=== PATIENT | male | born 1995 | race African-American/Black ===

== ENCOUNTER 2019-09-08 17:41 | Emergency (ER) | payer SELFPAY ==
[~2019-09-08] VITALS: Ht 188 cm; Wt 70.4 kg
[2019-09-08 18:57] VITALS: BP 145/64
--- NOTE | 2019-09-08 19:15 | PHYS DOC ---
Past Medical History Past Medical History: No Pertinent History (DALE STEELE APRN) Past Surgical History: No Surgical History (DALE STEELE APRN) Alcohol Use: None (DALE STEELE APRN) Attending Signature I have participated in the care of this patient and I have reviewed and agree with all pertinent clinical information above including history, exam, and recommendations. (ONEAL CARDONA MD) Adult General Chief Complaint Chief Complaint: FLU SYMPTOM [facility] HPI Patient is a 23 year old male who presents with fever, loss of appetite, body aches, sore throat, runny nose, cough that started 3 days ago. Patient has been able to drink water at home. Patient has been using Tylenol for fever control. Complete ROS were reviewed and found to be within normal limits, except as documented in the HPI (DALE STEELE APRN) Physical Exam Physical Exam Constitutional: Well developed, well nourished, no acute distress, non-toxic appearance. [] HENT: Normocephalic, atraumatic, bilateral external ears normal, bilateral tympanic membranes are pearly griffith, oropharynx moist, no oral exudates, nose turbinates are inflamed. Eyes: PERRLA, EOMI, conjunctiva normal, no discharge. [] Neck: Normal range of motion, no tenderness, supple, no stridor. [] Cardiovascular:Heart rate regular rhythm, no murmur [] Lungs & Thorax: Bilateral breath sounds clear to auscultation [] Abdomen: Bowel sounds normal, soft, no tenderness, no masses, no pulsatile masses. [] Skin: Warm, dry, no erythema, no rash. [] Neurologic: Alert and oriented X 3, normal motor function, normal sensory function, no focal deficits noted. [] Psychologic: Affect normal, judgement normal, mood normal. [] (DALE STEELE APRN) Current Patient Data Vital Signs Vital Signs Date Time Temp Pulse Resp B/P (MAP) Pulse Ox O2 Delivery O2 Flow Rate FiO2 09/08/19 18:57 99.9 106 24 145/64 (91) 95 Room Air 99.9 (ONEAL CARDONA MD) EKG EKG [] (DALE STEELE APRN) Radiology/Procedures Radiology/Procedures [] (DALE STEELE APRN) Course & Med Decision Making Course & Med Decision Making Pertinent Labs and Imaging studies reviewed. (See chart for details) A medical screening exam was performed on this patient and the patient does not appear to be having a medical emergency. His symptoms are not of sufficient severity and within reasonable medical probability it is unlikely the absence of immediate medical attention would result in placing the health of the individual (or, with respect to a woman, the health of the woman or her unborn child) in serious jeopardy, serious impairment to bodily functions, or serious dysfunction of any bodily organ or part. If , the patient is not in labor The patient appears to have the Flu clinically. Discussed with patient the importance of drinking plenty of fluids. I also discussed the importance of rest. It was discussed with the patient that she is contagious and to stay away from others until it has been a week since the start of her symptoms. Discussed with the patient that she can take Zyrtec per label instructions for runny nose. Also discussed the proper control of fever by rotating Tylenol and Ibuprofen at home. (DALE STEELE APRN) Dragon Disclaimer Dragon Disclaimer This electronic medical record was generated, in whole or in part, using a voice recognition dictation system. (DALE STEELE APRN) Departure Departure Impression: Primary Impression: Viral syndrome Additional Impression: Encounter for medical screening examination Disposition: HOME, SELF-CARE Condition: STABLE Referrals: NO PCP (PCP) Patient Instructions: Medical Screening Exam Additional Instructions: Thank you for visiting [facility]. We appreciate you trusting us with your care. If any additional problems come up don't hesitate to return to visit us. Please follow up with your primary care provider so they can plan additional care if needed and know about the problem that you had. If symptoms worsen come back to the Emergency Department. Any concerning symptoms that start such as chest pain, shortness of air, weakness or numbness on one side of the body, running high fevers or any other concerning symptoms return to the ER. Problem Qualifiers DALE STEELE APRN Sep 08, 2019 19:15 ONEAL CARDONA MD Sep 09, 2019 03:44
== END 2019-09-08 19:27 | disposition home or self-care (01) ==
LOC: ER 17:41
DX: B34.9 Viral infection, unspecified (principal); R50.9 Fever, unspecified; R63.0 Anorexia; R05 Cough
CPT/HCPCS: 99281

== ENCOUNTER 2020-11-23 11:38 | Emergency (ER) | payer SELFPAY ==
[~2020-11-23] VITALS: Ht 188 cm; Wt 75.0 kg
[2020-11-23 13:50] VITALS: BP 137/81
--- NOTE | 2020-11-23 13:55 | PHYS DOC ---
Past Medical History Past Medical History: No Pertinent History Past Surgical History: No Surgical History Smoking Status: Current Every Day Smoker Alcohol Use: None General Adult EDM: Chief Complaint: FOOT INJURY PAIN HPI: HPI: Patient is a 25 year old male who presented to ER due to right ankle and right foot pain. Patient said he was playing basketball 5 days ago, and he landed on his right foot after a jump, he fell 3 separate pop in his right foot and ankle, has been having pain. Patient went to ER in [facility] at the time, x-ray was done, he was told to not walking on his right foot, he was told to follow-up with a foot doctor for outpatient treatment. However patient came home to [place] and has been walking on it. Patient said the pain has gotten worse so he came here for evaluation. Patient denies any right knee pain, no chest pain, no trouble breathing. Patient was prescribed [place] and Ibuprofen. Review of Systems: Review of Systems: Constitutional: Denies fever or chills. [] Eyes: Denies change in visual acuity. [] HENT: Denies nasal congestion or sore throat. [] Respiratory: Denies cough or shortness of breath. [] Cardiovascular: Denies chest pain or edema. [] GI: Denies abdominal pain, nausea, vomiting, bloody stools or diarrhea. [] : Denies dysuria. [] Musculoskeletal: Positive for right ankle pain, right foot pain. Integument: Denies rash. [] Neurologic: Denies headache, focal weakness or sensory changes. [] Endocrine: Denies polyuria or polydipsia. [] Lymphatic: Denies swollen glands. [] Psychiatric: Denies depression or anxiety. [] Heart Score: C/O Chest Pain: N/A Risk Factors: Risk Factors: DM, Current or recent (<one month) smoker, HTN, HLP, family history of CAD, obesity. Risk Scores: Score 0 - 3: 2.5% MACE over next 6 weeks - Discharge Home Score 4 - 6: 20.3% MACE over next 6 weeks - Admit for Clinical Observation Score 7 - 10: 72.7% MACE over next 6 weeks - Early Invasive Strategies Physical Exam: PE: Constitutional: Well developed, well nourished, no acute distress, non-toxic appearance. [] HENT: Normocephalic, atraumatic, bilateral external ears normal, oropharynx erica st, no oral exudates, nose normal. [] Eyes: PERRLA, EOMI, conjunctiva normal, no discharge. [] Neck: Normal range of motion, no tenderness, supple, no stridor. [] Cardiovascular:Heart rate regular rhythm, no murmur [] Lungs & Thorax: Bilateral breath sounds clear to auscultation [] Abdomen: Bowel sounds normal, soft, no tenderness, no masses, no pulsatile masses. [] Skin: Warm, dry, no erythema, no rash. [] Back: No tenderness, no CVA tenderness. [] Extremities: Right ankle with minimal swelling at the lateral malleolus area, right foot is tender to palpation at the base of the fifth metatarsal area Neurologic: Alert and oriented X 3, normal motor function, normal sensory function, no focal deficits noted. [] Psychologic: Affect normal, judgement normal, mood normal. [] EKG: EKG: [] Radiology/Procedures: Radiology/Procedures: [][facility] [address] [place] [address] IMAGING REPORT Signed PATIENT: CATARINA TOLEDO ACCOUNT: [id number] : 1995 LOCATION: ER AGE: 25 SEX: M EXAM STATUS: REG ER ORD. PHYSICIAN: CARY SANCHEZ DO REASON: hurted right ankle 5 days ago PROCEDURE: ANKLE RIGHT 3V XR EXAM OF ANKLE_RIGHT 3VIEWS, XR FOOT_RIGHT 3 VIEWS History: Reason: hurted right ankle 5 days ago / Spl. Instructions: / History: Technique: 3 views right ankle and 3 views right foot Comparison: None. Findings: Normal alignment of the ankle. Symmetric ankle mortise. No fracture. Soft tissues unremarkable. Normal alignment of the foot. No fracture. Impression: 1. No acute osseous abnormality. Electronically signed by: Shadi Funez DO (11/23/2020 2:32 PM) [facility] DICTATED and SIGNED BY: SHADI FUNEZ DO DATE: 11/23/20 [id number] 0 Course & Med Decision Making: Course & Med Decision Making Pertinent Labs and Imaging studies reviewed. (See chart for details) Patient is a 25-year-old male who presented to ER for evaluation of right foot and ankle pain injured during a basketball game. X-ray did not show any fracture or dislocation. Patient demanded Narcotic for pain control. This physician informed him that he has no fracture, he does not need narcotic for an injury 5 days ago. [place] Disclaimer: Dragon Disclaimer: This electronic medical record was generated, in whole or in part, using a voice recognition dictation system. Departure Departure Impression: Primary Impression: Sprain of right foot Additional Impression: Right ankle sprain Disposition: HOME / SELF CARE / HOMELESS Condition: STABLE Referrals: NO PCP (PCP) Patient Instructions: Ankle Sprain, Foot Sprain Additional Instructions: Thank you for visiting our Emergency Department. We appreciate you trusting us with your care. If any additional problems come up don't hesitate to return to visit us. Please follow up with your primary care provider so they can plan additional care if needed and know about the problem that you had. If symptoms worsen come back to the Emergency Department. Any concerning symptoms that start such as chest pain, shortness of air, weakness or numbness on one side of the body, running high fevers or any other concerning symptoms return to the ER. Scripts Naproxen Sodium (ANAPROX DS) 550 Mg Tablet 1 TAB PO BID PRN for PAIN for 15 Days, #30 TAB 0 Refills Prov: CARY SANCHEZ DO 11/23/20 CARY SANCHEZ DO Nov 23, 2020 13:55
--- NOTE | 2020-11-23 14:35 | RAD ---
XR EXAM OF ANKLE_RIGHT 3VIEWS, XR FOOT_RIGHT 3 VIEWS History: Reason: hurted right ankle 5 days ago / Spl. Instructions: / History: Technique: 3 views right ankle and 3 views right foot Comparison: None. Findings: Normal alignment of the ankle. Symmetric ankle mortise. No fracture. Soft tissues unremarkable. Normal alignment of the foot. No fracture. Impression: 1. No acute osseous abnormality. Electronically signed by: Shadi Rios DO (11/23/2020 2:32 PM) [facility]
[2020-11-23] MEDS ORDERED: NAPR-682 PO (14:40)
== END 2020-11-23 15:00 | disposition home or self-care (01) ==
LOC: ER 11:38
DX: S93.691A Other sprain of right foot, initial encounter (principal); S93.491A Sprain of other ligament of right ankle, initial encounter; F17.200 Nicotine dependence, unspecified, uncomplicated; W18.39XA Other fall on same level, initial encounter; Y93.67 Activity, basketball; Y92.89 Other specified places as the place of occurrence of the external cause; Y99.8 Other external cause status
CPT/HCPCS: 73610; 73630; 99284